=== PATIENT | female | born 1960 | race Caucasian/White ===

== ENCOUNTER → 2022-04-14 | Outpatient (CLI) | payer OTHER ==
--- NOTE | 2022-04-15 09:49 | DIREP ---
PROCEDURE:XRAY HAND MIN 3 VW-LT COMPARISON:None. INDICATIONS:LEFT HAND PAIN FINDINGS: BONES:Normal. JOINTS:Mild osteophytosis within the interphalangeal joints and thumb carpometacarpal joint. SOFT TISSUES:Soft tissue ossification about the radial aspect of the thumb carpometacarpal joint. OTHER:No additional findings. CONCLUSION:Degenerative changes without acute bony abnormality. Dictated by: Rashmi Sawyer M.D. on 04/15/2022 at 09:44 AM
== END | disposition home or self-care (01) ==
LOC: RAD 19:16
PROVIDERS: ATTEND Nurse Practitioner Family
DX: S67.22XA Crushing injury of left hand, initial encounter (principal); M19.042 Primary osteoarthritis, left hand; M25.742 Osteophyte, left hand; X58.XXXA Exposure to other specified factors, initial encounter; Y93.89 Activity, other specified; Y92.89 Other specified places as the place of occurrence of the external cause; Y99.8 Other external cause status
CPT/HCPCS: 73130-LT